=== PATIENT | male | born 1955 | race Caucasian/White ===

== ENCOUNTER 2021-12-11 14:00 | Emergency (ER) | payer OTHER ==
[~2021-12-11] VITALS: Ht 170.2 cm; Wt 81.6 kg
[2021-12-11 14:00] VITALS: BP_SYST 140; BP_SYST 16
--- NOTE | 2021-12-11 14:00 | NUR ---
pt presents to the ER [facility]. No complaints. Pt denies NVD. Pt [id number] skin intact, even unlabored breathing.
--- NOTE | 2021-12-11 14:04 | NUR ---
Pt relaxed requested Ibuprofen and water. NAD.
--- NOTE | 2021-12-11 14:04 | NUR ---
ER at bedside examining patient.
[2021-12-11] MEDS ORDERED: IBUPROFEN 800 MG TABLET PO ONE (14:15)
--- NOTE | 2021-12-11 14:20 | NUR ---
EKG complete by Satinder AYOUB
--- NOTE | 2021-12-11 14:50 | NUR ---
Patient given written and verbal discharge instructions and verbalizes understanding. ER MD discussed with patient the results and treatment provided. Patient in stable condition. ID arm band removed. Patient educated on pain management and to follow up with PMD. Opportunity for questions provided and answered. Medication side effect fact sheet provided.
[2021-12-11 14:52] VITALS: BP_SYST 148
== END 2021-12-11 14:50 ==
LOC: SED 14:00
DX: S33.5XXA Sprain of ligaments of lumbar spine, initial encounter (principal); Z79.899 Other long term (current) drug therapy; X58.XXXA Exposure to other specified factors, initial encounter; Y93.89 Activity, other specified; Y92.89 Other specified places as the place of occurrence of the external cause; Y99.8 Other external cause status
CPT/HCPCS: 72100-TC; 93005; 99283